=== PATIENT | male | born 1995 | race Caucasian/White ===

== ENCOUNTER 2025-04-29 00:52 | Emergency (ER) | payer OTHER ==
[~2025-04-29] VITALS: Ht 175.3 cm; Wt 77.1 kg
[2025-04-29 00:57] VITALS: BP 151/79; TEMP 98.9; O2SAT 97
== END 2025-04-29 01:07 ==
LOC: ER 00:59
DX: S60.812A Abrasion of left wrist, initial encounter (principal); S60.811A Abrasion of right wrist, initial encounter; F19.10 Other psychoactive substance abuse, uncomplicated; X58.XXXA Exposure to other specified factors, initial encounter; Y93.89 Activity, other specified; Y92.89 Other specified places as the place of occurrence of the external cause; Y99.8 Other external cause status